=== PATIENT | male | born 1990 | race African-American/Black ===

== ENCOUNTER 2018-02-24 22:39 | Emergency (ER) | payer OTHER ==
[~2018-02-24] VITALS: Ht 162.6 cm; Wt 65.8 kg
[~2018-02-24 22:39] MED LIST: SEROQUEL200 MG PO
[2018-02-25] MEDS ORDERED: DOLOGESIC 500-1 EACH PO (00:56)
[2018-02-25] MEDS ORDERED: TUSSIN DM MAX118 ML PO (00:56)
== END 2018-02-25 01:01 | disposition home or self-care (01) ==
LOC: ER 22:39
DX: M79.662 Pain in left lower leg (principal); M79.661 Pain in right lower leg; R05 Cough

== ENCOUNTER 2023-05-16 04:46 | Emergency (ER) | payer OTHER ==
[~2023-05-16] VITALS: Ht 162.6 cm; Wt 65.8 kg
[~2023-05-16 04:46] MED LIST changes: +DOLOGESIC 500-1 EACH PO; +TUSSIN DM MAX118 ML PO
[2023-05-16] MEDS ORDERED: RESTORIL15 M1 PO (04:59)
== END 2023-05-16 05:31 | disposition home or self-care (01) ==
LOC: ER 04:46
DX: K30 Functional dyspepsia (principal)

== ENCOUNTER 2025-05-07 08:04 | Emergency (ER) | payer OTHER ==
[~2025-05-07] VITALS: Ht 162.6 cm; Wt 59.0 kg
[~2025-05-07 08:04] MED LIST changes: +RESTORIL15 M1 PO
[2025-05-07 08:11] VITALS: BP 105/62; O2SAT 98
[2025-05-07] MEDS ORDERED: KETOROLAC TROMETHAMINE 60 MG VIAL IM STA (08:41)
[2025-05-07] MEDS ORDERED: DEXAMETHASONE SODIUM PHOSPHATE 4 MG/ML VIAL IM STA (08:42)
[2025-05-07] MEDS ORDERED: ACETAMINOPHEN 500 MG GEL..CAP PO STA (08:42)
== END 2025-05-07 09:09 | disposition home or self-care (01) ==
LOC: ER 08:04
DX: M72.2 Plantar fascial fibromatosis (principal)